=== PATIENT | male | born 1995 | race Caucasian/White ===

== ENCOUNTER 2025-06-11 21:42 | Emergency (ER) | payer BC ==
[~2025-06-11] VITALS: Ht 177.8 cm; Wt 81.6 kg
[2025-06-11 22:11] LABS: PLATELET COUNT (AUTO) 197 K/uL (152-348); RED BLOOD CELL COUNT(AUTO) 5.22 MIL/uL (4.06-5.63); RED CELL DISTRIBUTION WIDTH 13.6 % (12.1-16.2); WHITE BLOOD COUNT (AUTO) 13.2 K/uL (3.6-10.2)
[2025-06-11 22:13] LABS: *BILIRUBIN,URIN NEGATIVE (NEGATIVE); *BLOOD, URINE 3+ (NEGATIVE); *CLARITY,URINE CLEAR (CLEAR); *COLOR,URINE YELLOW (YELLOW); *KETONES,URINE NEGATIVE (NEGATIVE); *PROTEIN,URINE 2+ (NEGATIVE); *UROBILINOGEN,URINE 0.2 E.U./dl (NORMAL); LEUKOCYTE ESTERASE ,URINE NEGATIVE (NEGATIVE); NITRITE, URINE NEGATIVE (NEGATIVE); UGLUCOSE NEGATIVE (NEGATIVE)
[2025-06-11 22:19] LABS: CREATININE 0.8 mg/dL (0.6-1.3); SODIUM SERUM 138 mmol/L (136-145); UREA NITROGEN, BLOOD 11 mg/dL (7-18)
[2025-06-11 22:34] LABS: ASPARTATE AMINOTRANSFERASE 1699 U/L (15-37); TOTAL PROTEIN, SERUM 7.9 g/dL (6.4-8.2)
[2025-06-11] MEDS: IBUPROFEN 600 MG TABLET PO ONE (22:54)
[2025-06-11] MEDS ORDERED: IBUPROFEN 600 MG TABLET ONE (22:54)
[2025-06-11 23:05] LABS: SQUAMOUS EPITHELIAL CELL,UR FEW /HPF (NONE SEEN)
[2025-06-11 23:44] VITALS: BP 149/91; TEMP 98; O2SAT 99
== END 2025-06-11 23:45 | disposition home or self-care (01) ==
LOC: ER 21:47
DX: M62.82 Rhabdomyolysis (principal); M25.561 Pain in right knee; M25.562 Pain in left knee; Z86.16 Personal history of COVID-19; Z88.8 Allergy status to other drugs, medicaments and biological substances
CPT/HCPCS: 36415; 85025; A4606; A4663